=== PATIENT | male | born 1950 | race African-American/Black ===

== ENCOUNTER 2020-11-29 15:28 | Emergency (ER) | payer MEDICARE, OTHER ==
[2020-11-29] MEDS ORDERED: BACTRIM DS TAB1 EACH PO (18:01)
== END 2020-11-29 19:00 | disposition home or self-care (01) ==
LOC: FER 15:28
DX: L02.213 Cutaneous abscess of chest wall (principal); I25.10 Atherosclerotic heart disease of native coronary artery without angina pectoris; J45.909 Unspecified asthma, uncomplicated